=== PATIENT | male | born 1955 | race Caucasian/White ===

== ENCOUNTER 2023-01-18 12:49 | Emergency (ER) | payer OTHER ==
[~2023-01-18] VITALS: Ht 182.9 cm; Wt 99.8 kg
[~2023-01-18 12:49] MED LIST: B-121000 MC1; Daily Multiple1 EACH; IBUP400; OXYACE5T PO; PROM25 PO; RXOXYACE PO; RXPROM25 PO; Simvastatin40 MG; TAMS.4ER PO; WARF2.5 PO; WARF5
[2023-01-18 13:42] LABS: BASOPHILS ABSOLUTE AUTO 0.02 K/mm3 (0.00-0.23); BASOPHILS PERCENT AUTO 0 % (0-2); EOSINOPHILS ABSOLUTE AUTO 0.13 K/mm3 (0.00-0.68); EOSINOPHILS PERCENT AUTO 3 % (0-6); Hematocrit 42.6 % (37.0-53.0); IMMATURE GRAN ABSOLUTE AUTO 0.02 K/mm3 (0.00-0.10); IMMATURE GRAN PERCENT AUTO 0 % (0-1); LYMPHOCYTES ABSOLUTE AUTO 0.76 K/mm3 (0.84-5.20); LYMPHOCYTES PERCENT AUTO 15 % (21-46); MONOCYTES ABSOLUTE AUTO 0.57 K/mm3 (0.16-1.47); MONOCYTES PERCENT AUTO 11 % (4-13); Mean Corpuscular HGB 33.1 pg (26.0-34.0); Mean Corpuscular HGB Conc 35.2 g/dL (31.5-36.5); Mean Corpuscular Volume 94 fL (80-100); Mean Platelet Volume 9.9 fL (9.1-12.4); NEUTROPHILS ABSOLUTE AUTO 3.57 K/mm3 (1.96-9.15); NEUTROPHILS PERCENT AUTO 70 % (41-73); Platelet Count 120 K/mm3 (150-400); RDW Coefficient Variation 11.9 % (11.7-14.2); RDW Standard Deviation 41.5 fL (35.1-46.3); Red Blood Cell Count 4.53 M/mm3 (4.30-5.90); White Blood Cell Count 5.07 K/mm3 (4.00-11.30)
[2023-01-18 13:58] LABS: International Normalized Ratio 1.04; Prothrombin Time Results 10.9 Sec (9.7-11.5)
[2023-01-18 14:08] LABS: Albumin, Blood 3.6 g/dL (3.4-5.0); Bilirubin, Total 0.6 mg/dL (0.1-1.0); Bun/Creatinine Ratio 21.1 (12.0-20.0); Calcium, Blood 8.5 mg/dL (8.5-10.1); Creatinine, Blood 0.9 mg/dL (0.60-1.20); Globulin, Blood 3.5 g/dL (2.2-4.0); Potassium, Blood 3.9 mmol/L (3.5-5.5); Total Protein, Blood 7.1 g/dL (6.4-8.2)
[2023-01-18] MEDS ORDERED: TAMSULOSIN HCL0.4 M1 PO (16:22)
[2023-01-18] MEDS ORDERED: ELIQUIS5 M3 PO (16:22)
[2023-01-18 16:33] VITALS: BP 154/85
== END 2023-01-18 19:30 | disposition home or self-care (01) ==
LOC: ER 12:49
PROVIDERS: Physician Assistant
DX: I82.402 Acute embolism and thrombosis of unspecified deep veins of left lower extremity (principal); E78.5 Hyperlipidemia, unspecified; Z79.899 Other long term (current) drug therapy; Z79.01 Long term (current) use of anticoagulants
CPT/HCPCS: 71046; 80053; 85025; 85610; 85730; 93005; 93010; 96374; 99284-25; A9270; J2405

== ENCOUNTER → 2023-03-15 | Outpatient (CLI) | payer OTHER ==
[~2023-03-15] MED LIST changes: +ELIQUIS5 M3 PO; +TAMSULOSIN HCL0.4 M1 PO
== END ==
LOC: LAB 08:58 → LAB SHORT 08:58
DX: D04.4 Carcinoma in situ of skin of scalp and neck (principal)
CPT/HCPCS: 88305

== ENCOUNTER 2023-05-12 08:50 | Day surgery (SDC) | payer OTHER ==
[2023-05-12] VITALS (11 sets, daily range): BP systolic 131–164; BP diastolic 80–94
[~2023-05-12] VITALS: Ht 182.9 cm; Wt 103.6 kg
[~2023-05-12 08:50] MED LIST changes: +CeFAZolin Sodium 2,000 MG in NS 100 ML IV SCH; +FentaNYL Citrate 50 MCG/ML 2 ML Injection ONE; +Lactated Ringer's 1,000 ML IV SCH; +MULVITA PO; +Rocuronium Bromide 10 MG/ML 5ML Injection IV ONE; +VITAMIN B12500 MCG PO; +ZOCOR20 MG PO; +propofoL 20 ML IV ONE
[2023-05-12] MEDS ORDERED: HYDROmorphone HCl/Pf 1MG SYR IV PRN (09:20)
[2023-05-12] MEDS ORDERED: Lidocaine HCl 1% 5 ML SYR INJ ONE (09:20)
[2023-05-12] MEDS ORDERED: Ondansetron HCl 2 MG / ML 2ML Vial IV PRN (09:20)
[2023-05-12] MEDS ORDERED: Midazolam HCl 1MG / ML 2ML Vial IV ONE (09:20)
[2023-05-12] MEDS ORDERED: FentaNYL Citrate 50 MCG/ML 2 ML Injection IV PRN ×2 (09:20→09:25)
[2023-05-12] MEDS ORDERED: XARELTO20 MG PO (09:25)
--- NOTE | 2023-05-12 10:11 | NUR ---
History, Chart, Medications and Allergies reviewed before start of procedure. Pre-Op teaching done. Pt verbalizes understanding. Patient States Post-Procedure ride home has been arranged [facility] [place]. PT BELONGINGS PLACED UNDER [facility].
[2023-05-12] MEDS ORDERED: Bupivacaine 0.5% HCl 5 MG/ML 30MLVIAL ONE (11:15)
[2023-05-12] MEDS ORDERED: Midazolam HCl 1MG / ML 2ML Vial ONE (11:28)
[2023-05-12] MEDS ORDERED: Ondansetron HCl 2 MG / ML 2ML Vial ONE (11:57)
[2023-05-12] MEDS ORDERED: Dexamethasone Sod Phos 10 MG/ML 1ML VIAL ONE (11:57)
[2023-05-12] MEDS ORDERED: Rocuronium Bromide 10 MG/ML 5ML Injection IV ONE (12:03)
[2023-05-12] MEDS ORDERED: FentaNYL Citrate 50 MCG/ML 2 ML Injection ONE (12:14)
[2023-05-12] MEDS ORDERED: Sugammadex Sodium 200 MG/2ML SDV (100 MG/ML) ONE (12:33)
[2023-05-12] MEDS ORDERED: OxyCODONE 5 mg/Acetamin 325 mg TABLET PO PRN (13:55)
--- NOTE | 2023-05-12 14:06 | NUR ---
1356 REPORT RECEIVED FROM REINALDO DIAZ. VSS. PT ON RA. PT ABLE TO REPOSITION SELF IN BED. PT REQUESTING PO FOOD AND FLUIDS AND TOLERATING THEM WELL. PT REPORTS 5/10 ACHING PAIN TO ABDOMEN. PT DENIES NAUSEA OR OTHER DISCOMFORTS. PT HAS 3 INCISION SITES TO ABDOMEN THAT ARE COVERED WITH EXOFEN THAT ARE C/D/I WITHOUT DRAINAGE, REDNESS OR SWELLING. PT ALSO HAS PRESSURE DRESSING TO UMBILICAL THAT IS C/D/I. PT HAS BILAT PAS IN PLACE.
--- NOTE | 2023-05-12 14:55 | NUR ---
Patient up to Ambulate independently. Gait steady. VSS AND CONSISTENT WITH PT BASELINE. PT VERBALIZES READINESS TO GO HOME. Discharge instructions reviewed with patient. Patient verbalizes understanding. Copy given to patient to take home. Dressing to procedure site clean, dry, intact with no visible drainage, swelling, erythema or bruising noted. Patient States Post-Procedure ride home has been arranged. Discharged via wheelchair to private car for ride home. PT BELONGINGS RETURNED TO PT.
== END 2023-05-12 14:57 | disposition home or self-care (01) ==
LOC: ORSCMMR 08:50
PROVIDERS: Surgery
PROC: 8E0W4CZ Robotic Assisted Procedure of Trunk Region, Percutaneous Endoscopic Approach (ICD-10-PCS; principal; 2023-05-12 10:30)
PROC: 0WUF4KZ Supplement Abdominal Wall with Nonautologous Tissue Substitute, Percutaneous Endoscopic Approach (ICD-10-PCS; principal; 2023-05-12 10:30)
DX: K42.0 Umbilical hernia with obstruction, without gangrene (principal)
CPT/HCPCS: A9270; C1781; J0690; J1100; J2250; J2405; J2704; J3010; J7120